=== PATIENT | female | born 1965 | race Caucasian/White ===

== ENCOUNTER 2021-12-01 17:07 | Outpatient (CLI) | payer MEDICAID, SELFPAY | END 2021-12-01 17:08 | disposition home or self-care (01) | LOC: AMB 12-09 17:56 | PROVIDERS: PCP Family Medicine; Visit Provider Family Medicine | DX: R06.09 Other forms of dyspnea (principal); R53.1 Weakness | CPT/HCPCS: A0425; A0427 ==